=== PATIENT | female | born 1985 | race Caucasian/White ===

== ENCOUNTER 2016-11-17 15:03 | Emergency (ER) | payer MEDICAID ==
[2016-11-17 15:45] VITALS: RESP 18; TEMP 98.2; O2SAT 100; BMI 26.6
--- NOTE | 2016-11-17 16:05 | ED PDOC ---
Arrival/HPI - General Time Seen by Provider: 11/17/16 15:48 Historian: Patient - History of Present Illness Narrative History of Present Illness (Text): 11/17/16 16:00 This 31 yo female with pmh lupus, presents to this ED c/o "migraines for couple of days". Patient also noted multiple joint pain. Patient denies fever, neck stiffness, cp, sob, abdominal pain, n/v, skin rash, recent travel, sick contact , diplopia, dysarthria, urinary symptoms, vaginal discharge, seizures, or abnormal gait. Time/Duration: < week Context: Home Past Medical History - Provider Review Nursing Documentation Reviewed: Yes - Past History Past History: No Previous - Infectious Disease Hx of Infectious Diseases: None - Tetanus Immunization Tetanus Immunization: Unknown - Past Medical History Past Medical History: No Previous - Cardiac Hx Cardiac Disorders: No - Pulmonary Hx Respiratory Disorders: No - Neurological Hx Neurological Disorder: No - HEENT Hx HEENT Disorder: No - Renal Hx Renal Disorder: No - Endocrine/Metabolic Hx Systemic Lupus Erythematosus: Yes - Hematological/Oncological Hx Blood Disorders: No - Integumentary Hx Dermatological Disorder: No - Musculoskeletal/Rheumatological Hx Arthritis: Yes (RA) Hx Rheumatoid Arthritis: Yes Other/Comment: lupus - Gastrointestinal Hx Gastrointestinal Disorders: No - Genitourinary/Gynecological Hx Genitourinary Disorders: Yes Hx Bladder Cancer: No Other/Comment: ovarian cyst - Psychiatric Hx Psychophysiologic Disorder: No Hx Anxiety: No Hx Bipolar Disorder: No Hx Depression: No Hx Emotional Abuse: No Hx Hallucinations: No Hx Panic Disorder: No Hx Post Traumatic Stress Disorder: No Hx Psychosis: No Hx Physical Abuse: No Hx Schizophrenia: No Hx Sexual Abuse: No Hx Substance Use: No - Past Surgical History Past Surgical History: No Previous - Surgical History Hx Section: Yes - Anesthesia Hx Anesthesia: Yes Hx Anesthesia Reactions: No Hx Malignant Hyperthermia: No - Suicidal Assessment Feels Threatened In Home Enviroment: No Family/Social History - Physician Review Nursing Documentation Reviewed: Yes Family/Social History: No Known Family HX Smoking Status: Never Smoked Hx Alcohol Use: No Hx Substance Use: No Hx Substance Use Treatment: No Allergies/Home Meds Allergies/Adverse Reactions: Allergies Sulfa (Sulfonamide Antibiotics) Allergy (Verified 08/26/16 15:52) RASH Home Medications: Home Meds Medication Instructions Recorded Confirmed Hydroxychloroquine Sulfate 200 mg PO BID 12/17/15 08/26/16 [Plaquenil] metroNIDAZOLE [Flagyl] 500 mg PO BID 08/26/16 08/26/16 Review of Systems - Review of Systems Constitutional: Normal. absent: Fatigue, Weight Change, Fevers, Night Sweats Eyes: Normal. absent: Vision Changes, Photophobia, Eye Pain ENT: Normal. absent: Sore Throat, Rhinorrhea Respiratory: Normal. absent: SOB, Cough Cardiovascular: Normal. absent: Chest Pain, Palpitations, Syncope Gastrointestinal: Normal. absent: Abdominal Pain, Nausea, Vomiting Genitourinary Female: Normal. absent: Dysuria, Frequency, Hematuria, Vaginal Bleeding, Vaginal Discharge Musculoskeletal: Arthralgias, Myalgias. absent: Back Pain, Neck Pain, Joint Swelling Skin: Normal. absent: Rash, Pruritis Neurological: Headache. absent: Dizziness, Focal Weakness, Gait Changes, Speech Changes, Facial Droop, Disequilibrium, Seizure Endocrine: Normal Hemo/Lymphatic: Normal Psychiatric: Normal Physical Exam Vital Signs Temp Pulse Resp BP Pulse Ox 11/17/16 16:15 79 18 116/71 100 11/17/16 15:44 98.2 F 86 18 118/74 100 Temperature: Afebrile Blood Pressure: Normal Pulse: Regular Respiratory Rate: Normal Appearance: Positive for: Well-Appearing, Non-Toxic, Comfortable Pain Distress: None Mental Status: Positive for: Alert and Oriented X 3 - Systems Exam Head: Present: Atraumatic, Normocephalic Pupils: Present: PERRL Extroacular Muscles: Present: EOMI Conjunctiva: Present: Normal Mouth: Present: Moist Mucous Membranes Pharnyx: Present: Normal. No: ERYTHEMA, EXUDATE, TONSILS ENLARGED Nose (External): Present: Atraumatic Nose (Internal): Present: Normal Inspection Neck: Present: Normal Range of Motion, Trachea Midline. No: Meningeal Signs, MIDLINE TENDERNESS, Paraspinal Tenderness, Lymphadenopathy Respiratory/Chest: Present: Clear to Auscultation, Good Air Exchange. No: Respiratory Distress, Accessory Muscle Use, Wheezes, Retracting, Rhonchi Cardiovascular: Present: Regular Rate and Rhythm, Normal S1, S2. No: Murmurs Abdomen: Present: Normal Bowel Sounds. No: Tenderness, Distention, Peritoneal Signs, Rebound, Guarding Back: Present: Normal Inspection. No: CVA Tenderness Upper Extremity: Present: Normal Inspection, Normal ROM, NORMAL PULSES, Neurovascularly Intact, Capillary Refill < 2s. No: Cyanosis, Edema Lower Extremity: Present: Normal Inspection, NORMAL PULSES, Normal ROM, Neurovascularly Intact, Capillary Refill < 2 s. No: Edema, CALF TENDERNESS Neurological: Present: GCS=15, CN II-XII Intact, Speech Normal, Motor Func Grossly Intact, Normal Sensory Function, Normal Cerebellar Funct, Gait Normal Skin: Present: Warm, Dry, Normal Color. No: Rashes Psychiatric: Present: Alert, Oriented x 3 Medical Decision Making ED Course and Treatment: 11/17/16 18:07 Patient is resting comfortably, and is in no acute distress. Patient was instructed to follow up with PMD in 1-2 days for further evaluation. Patient came c/o migraines. Patient denies other symptoms. Physical exam was unremarkable. Normal gait. No neuro focal deficits. Patient requested to be referred to see Dr. Leong Neurologist. Patient was treated with Toradol IVP, IVF, Reglan IV, Benadryl IV. Patient stated she feels well and she wishes to be discharge home. Patient was recommended to f/u with pmd, and neurologist doctor in 1-2 days for revaluation. Patient was instructed to return to emergency if symptoms returns. Re-evaluation Time: 18:12 Reassessment Condition: Re-examined, Improved - Lab Interpretations Lab Results: Lab Results 11/17/16 16:10: Urine Color Yellow, Urine Appearance Clear, Urine pH 6.5, Ur Specific [place] >= 1.030, Urine Protein Trace H, Urine Glucose (UA) Negative, Urine Ketones Negative, Urine Blood Negative, Urine Nitrate Negative, Urine Bilirubin Negative, Urine Urobilinogen 0.2, Ur Leukocyte Esterase Negative, Urine RBC 0 - 2, Urine WBC 0 - 2, Ur Epithelial Cells 1 - 3, Urine Bacteria Small, Urine HCG, Qual Negative - Medication Orders Current Medication Orders: Discontinued Medications Diphenhydramine HCl (Benadryl) 25 mg IVP STAT STA Stop: 11/17/16 16:07 Last Admin: 11/17/16 17:15 Dose: 25 mg Sodium Chloride (Sodium Chloride 0.9%) 1,000 mls @ 999 mls/hr IV .Q1H1M STA Stop: 11/17/16 17:05 Last Admin: 11/17/16 17:15 Dose: 999 mls/hr Ketorolac Tromethamine (Toradol) 15 mg IVP STAT STA Stop: 11/17/16 16:06 Last Admin: 11/17/16 17:15 Dose: 15 mg Metoclopramide HCl (Reglan) 10 mg IVP STAT STA Stop: 11/17/16 16:06 Last Admin: 11/17/16 17:15 Dose: 10 mg Disposition/Present on Arrival - Present on Arrival Any Indicators Present on Arrival: No History of DVT/PE: No History of Uncontrolled Diabetes: No Urinary Catheter: No History Surgical Site Infection Following: None - Disposition Have Diagnosis and Disposition been Completed?: Yes Diagnosis: Headache Disposition: HOME/ ROUTINE Disposition Time: 18:13 Patient Plan: Discharge Condition: IMPROVED Discharge Instructions (ExitCare): General Headache (ED) Additional Instructions: Call Dr. Leong neurologist for revaluation in 2-3 days, or earliest appointment. Return to emergency if symptoms returns. Call private doctor for revaluation. Take medication as instructed. Prescriptions: Acetaminophen/Butalbital/Caf [Fioricet] 1 tab PO Q6H PRN #12 tab PRN Reason: Headache Referrals: Nida Jarvis MD [Primary Care Provider] - Follow up with primary Jalen Leong MD [Staff Provider] - Follow up with primary Forms: WORK NOTE
[2016-11-17 16:47] LABS: PH,URINE 6.5 (4.7-8.0); URINE BILIRUBIN NEGATIVE (NEGATIVE); URINE BLOOD NEGATIVE (NEGATIVE); URINE GLUCOSE (UA) NEGATIVE (NEGATIVE); URINE KETONE NEGATIVE (NEGATIVE); URINE LEUKOCYTE ESTERASE NEGATIVE Leu/uL (NEGATIVE); URINE PROTEIN TRACE mg/dL (<30 mg/dL); URINE UROBILINOGEN 0.2 E.U./dL (<1 E.U./dL)
[2016-11-17 17:00] LABS: URINE APPEARANCE CLEAR (CLEAR); URINE COLOR YELLOW (YELLOW)
[2016-11-17 17:13] LABS: URINE BACTERIA SMALL (NEG); URINE RBC 0 - 2 /hpf (0-2); URINE WBC 0 - 2 /hpf (0-6)
[2016-11-17] MEDS: Sodium Chloride 0.9% 1,000 ML IV STA (17:15)
[2016-11-17] MEDS: DiphenhydrAMINE 50 mg/ml Inj IVP STA (17:15)
[2016-11-17 18:29] VITALS: BP 114/68; PULSE 75
== END 2016-11-17 18:30 | disposition home or self-care (01) ==
LOC: ED 15:03
DX: R51 Headache (principal); M06.9 Rheumatoid arthritis, unspecified
CPT/HCPCS: 81001; 84703; 96374; 96375; 99285; J1200; J1885; J2765; J7040

== ENCOUNTER 2017-07-16 12:30 | Emergency (ER) | payer MEDICAID ==
[2017-07-16 12:32] VITALS: BMI 25.4
[2017-07-16 12:33] VITALS: TEMP 98.1; O2SAT 100
[2017-07-16] MEDS ORDERED: Sodium Chloride 0.9% 500 ML IV STA (12:59)
--- NOTE | 2017-07-16 13:06 | ED PDOC ---
Arrival/HPI - General Chief Complaint: GI Problem Time Seen by Provider: 07/16/17 12:40 Historian: Patient - History of Present Illness Narrative History of Present Illness (Text): 07/16/17 14:17 pt p/w + ~ 1 week onset of lower abd cramps/pain, at most pain is 7-8/10, waxing and waning; pt states pain worsened over the last few days; pt states + decr/poor appetite, + nausea worsening today, no vomiting, + easily fatigued/ tiredness/persistent weakness; pt states no fever, ? chills, no sweats, no cp/ sob/palpitations, no numbness/tingling, no urinary/bowel changes, last BM was yesterday, no rashes, no fall/trauma/sick contact, no travel; pt denied other complaints; pt is here for further eval pt states her usual Lupus flare can involve her abd, but usually involves her joints/legs/arms pt denied current vaginal discharge (blood/green/yellow); pt denied vaginal bleeding pt denied weight loss Time/Duration: < week Symptom Onset: Gradual Symptom Course: Worsening Severity Level: 7 Past Medical History - Provider Review Nursing Documentation Reviewed: Yes - Travel History Have you recently traveled outside [place] w/in the past 3 mons?: No - Past History Past History: No Previous - Infectious Disease Hx of Infectious Diseases: None - Tetanus Immunization Tetanus Immunization: Unknown - Past Medical History Past Medical History: No Previous - Cardiac Hx Cardiac Disorders: No - Pulmonary Hx Respiratory Disorders: No - Neurological Hx Neurological Disorder: No - HEENT Hx HEENT Disorder: No - Renal Hx Renal Disorder: No - Endocrine/Metabolic Hx Systemic Lupus Erythematosus: Yes - Hematological/Oncological Hx Blood Disorders: No - Integumentary Hx Dermatological Disorder: No - Musculoskeletal/Rheumatological Hx Arthritis: Yes (RA) Hx Rheumatoid Arthritis: Yes Other/Comment: lupus - Gastrointestinal Hx Gastrointestinal Disorders: No - Genitourinary/Gynecological Hx Genitourinary Disorders: Yes Hx Bladder Cancer: No Other/Comment: ovarian cyst. endometriosis - Psychiatric Hx Psychophysiologic Disorder: No Hx Anxiety: No Hx Bipolar Disorder: No Hx Depression: No Hx Emotional Abuse: No Hx Hallucinations: No Hx Panic Disorder: No Hx Post Traumatic Stress Disorder: No Hx Psychosis: No Hx Physical Abuse: No Hx Schizophrenia: No Hx Sexual Abuse: No Hx Substance Use: No - Past Surgical History Past Surgical History: No Previous - Surgical History Hx Section: Yes (x 1) - Anesthesia Hx Anesthesia: Yes Hx Anesthesia Reactions: No Hx Malignant Hyperthermia: No - Suicidal Assessment Feels Threatened In Home Enviroment: No Family/Social History - Physician Review Nursing Documentation Reviewed: Yes Family/Social History: No Known Family HX Smoking Status: Never Smoked Hx Alcohol Use: No Hx Substance Use: No Hx Substance Use Treatment: No Allergies/Home Meds Allergies/Adverse Reactions: Allergies Sulfa (Sulfonamide Antibiotics) Allergy (Verified 08/26/16 15:52) RASH Home Medications: Home Meds Medication Instructions Recorded Confirmed Hydroxychloroquine Sulfate 200 mg PO BID 12/17/15 07/16/17 [Plaquenil] Acetaminophen [Tylenol 325mg tab] 1 tab PO TID 07/16/17 07/16/17 Nabumetone [Relafen] 1 tab PO TID 07/16/17 07/16/17 Review of Systems - Review of Systems Constitutional: Normal, Fatigue. absent: Fevers, Night Sweats Eyes: Normal ENT: Normal Respiratory: Normal Cardiovascular: Normal Gastrointestinal: Abdominal Pain, Nausea, Appetite Changes. absent: Vomiting Genitourinary Female: absent: Dysuria, Frequency, Hematuria, Vaginal Bleeding, Vaginal Discharge Musculoskeletal: Arthralgias, Myalgias Skin: Normal Neurological: Normal Endocrine: Normal Hemo/Lymphatic: Normal Psychiatric: Normal Physical Exam Vital Signs Reviewed: Yes Vital Signs Temp Pulse Resp BP Pulse Ox 07/16/17 12:31 98.1 F 70 18 118/74 100 Temperature: Afebrile Blood Pressure: Normal Pulse: Regular Respiratory Rate: Normal Appearance: Positive for: Well-Appearing, Non-Toxic, Comfortable Pain Distress: None Mental Status: Positive for: Alert and Oriented X 3 - Systems Exam Head: Present: Atraumatic, Normocephalic Pupils: Present: PERRL, Other (visual field intact b/l, no nystagmus, no photophobia, sclera anicteric) Extroacular Muscles: Present: EOMI Conjunctiva: Present: Normal Mouth: Present: Moist Mucous Membranes, Other (intact dentitions, no lesions/ lacerations noted to oralpharynx) Pharnyx: Present: Normal, Other (uvula/tonuge are midline, no exudate/lesions, no drooling/stridor) Neck: Present: Normal Range of Motion Respiratory/Chest: Present: Clear to Auscultation, Good Air Exchange. No: Respiratory Distress, Accessory Muscle Use Cardiovascular: Present: Regular Rate and Rhythm, Normal S1, S2. No: Murmurs Abdomen: Present: Normal Bowel Sounds, Other (well nourished female, lower suprapubic region mild tenderness, no perez's sign, no mcburney's point tenderness, no masses/rebound/guarding/rigidity). No: Tenderness, Distention, Peritoneal Signs Back: Present: Normal Inspection, Other (no midline tenderness, no step off). No: CVA Tenderness Upper Extremity: Present: Normal Inspection, Normal ROM, NORMAL PULSES, Capillary Refill < 2s. No: Cyanosis, Edema Lower Extremity: Present: Normal Inspection, NORMAL PULSES, Normal ROM, Capillary Refill < 2 s. No: Edema, Raciel's Sign Neurological: Present: GCS=15, CN II-XII Intact, Speech Normal Skin: Present: Warm, Dry, Normal Color, Other (cap refill < 1 sec, no ulcerations, no petechiae). No: Rashes Psychiatric: Present: Alert, Oriented x 3, Normal Insight, Normal Concentration Medical Decision Making ED Course and Treatment: 07/16/17 14:02 Impression: 1 week onset of lower abd pain/cramps; + decr appetite, + fatigue/ weakness; hx of lupus A/P: unlikely surg process (i.e appy/diverticulitis); possible lupus flare/ exacerbation; lower abd pain, non-specific; ? endometrosis. r/o UTI/infection - labs - ua - us - observe - supportive care 07/16/17 14:53 pt is feeling improved pt states her general pain is easing down to 4/10 pt is not as nauseous pt will attempt po challenge 07/16/17 15:03 pt tolerated po well pt is feeling improved pt is made aware of her medical results bland diet and continued hydration is encouraged pt will f/u as directed pt will be discharged home Re-evaluation Time: 14:45 Reassessment Condition: Improved - Lab Interpretations Lab Results: 07/16/17 13:00 07/16/17 13:00 Lab Results 07/16/17 13:00: Sodium 139, Potassium 4.0, Chloride 105, Carbon Dioxide 24, Anion Gap 14, BUN 12, Creatinine 0.7, Est GFR ( Amer) > 60, Est GFR (Non- Af Amer) > 60, Random Glucose 85, Calcium 8.8, Total Bilirubin 0.7, AST 34, ALT 29, Alkaline Phosphatase 83, Total Protein 8.0, Albumin 4.4, Globulin 3.6, Albumin/Globulin Ratio 1.2, Lipase 129 07/16/17 13:00: Urine Color Yellow, Urine Appearance Sl cloudy, Urine pH 6.0, Ur Specific [place] >= 1.030, Urine Protein Trace H, Urine Glucose (UA) Negative , Urine Ketones Negative, Urine Blood Negative, Urine Nitrate Negative, Urine Bilirubin Negative, Urine Urobilinogen 0.2, Ur Leukocyte Esterase Negative, Urine RBC 0 - 2, Urine WBC 0 - 2, Ur Epithelial Cells 1 - 3, Urine Bacteria Small, Urine Other Uyeast, Urine HCG, Qual Negative 07/16/17 13:00: WBC 8.6, RBC 4.34, Hgb 13.4, Hct 39.8, MCV 91.7, MCH 30.9, MCHC 33.7, RDW 13.2, Plt Count 236, MPV 10.3, Gran % 79.9 H, Lymph % (Auto) 11.4 L, Swain % (Auto) 5.8, Eos % (Auto) 2.7, Baso % (Auto) 0.2, Gran # 6.87 H, Lymph # 1.0 L, Swain # 0.5, Eos # 0.2, Baso # 0.02, ESR 13 I have reviewed the lab results: Yes (WNL) Interpretation: All labs normal - RAD Interpretation Radiology Orders: 07/16/17 12:59 ABDOMEN COMPLETE [US] Stat FINDINGS: LIVER: Measures 13.7 cm. Patent portal vein. Portal venous flow: Hepatopetal. Unremarkeable echogenicity of the liver parenchyma. No mass. No intrahepatic bile duct dilatation. GALLBLADDER: Unremarkable. No gallstones. COMMON BILE DUCT: Measures 3.6 mm. No stones. No dilatation. PANCREAS: Unremarkable as visualized. No mass. No ductal dilatation. RIGHT KIDNEY: Measures 4.4 x 11.3cm. Normal echogenicity. No calculus, mass, or hydronephrosis. LEFT KIDNEY: Measures 5.6 x 10.5cm. Normal echogenicity. No calculus, mass, or hydronephrosis. SPLEEN: Normal in size and contour. No mass. AORTA: No aneurysmal dilatation. IVC: Unremarkable. OTHER FINDINGS: None. IMPRESSION: Unremarkable abdominal sonogram. Special Equipment Technician: Radiologist - Medication Orders Current Medication Orders: Discontinued Medications Sodium Chloride (Sodium Chloride 0.9%) 500 mls @ 1,000 mls/hr IV .Q30M STA Stop: 07/16/17 13:28 Last Admin: 07/16/17 13:21 Dose: 1,000 mls/hr eMAR Start Stop Document 07/16/17 13:21 SF (Rec: 07/16/17 13:21 [id number]) Intravenous Solution Start Date 07/16/17 Start Time 13:21 End Date 07/16/17 End time 13:51 Total Infusion Time 30 Ketorolac Tromethamine (Toradol) 15 mg IVP STAT STA Stop: 07/16/17 13:01 Last Admin: 07/16/17 13:21 Dose: 15 mg MAR Pain Assessment Document 07/16/17 13:21 SF (Rec: 07/16/17 13:21 [id number]) Pain Reassessment Is this a pain reassessment? Yes Sleep Is patient sleeping during reassessment? No Presence of Pain Presence of Pain Yes Pain Scale Used Pain Scale Used Numeric IVP Administration Document 07/16/17 13:21 SF (Rec: 07/16/17 13:21 [facility] [id number]) Charges for Administration # of IVP Administrations 1 Ondansetron HCl (Zofran Inj) 4 mg IVP STAT STA Stop: 07/16/17 13:00 Last Admin: 07/16/17 13:20 Dose: 4 mg IVP Administration Document 07/16/17 13:20 SF (Rec: 07/16/17 13:20 [id number]) Charges for Administration # of IVP Administrations 1 Disposition/Present on Arrival - Present on Arrival Any Indicators Present on Arrival: No History of DVT/PE: No History of Uncontrolled Diabetes: No Urinary Catheter: No History of Decub. Ulcer: No History Surgical Site Infection Following: None - Disposition Have Diagnosis and Disposition been Completed?: Yes Diagnosis: Abdominal cramps, Nausea, General medical exam Disposition: HOME/ ROUTINE Disposition Time: 14:55 Patient Plan: Discharge Condition: STABLE Discharge Instructions (ExitCare): Acute Abdominal Pain (GEN), Acute Nausea and Vomiting (ED) Print Language: DANISH Additional Instructions: Make sure to see your doctor in 1-2 days DRINK PLENTY OF FLUIDS BLAND DIET is encouraged x 1-2 days take your medications as prescribed RETURN TO ED IF worse pain, cant breath, persistent vomiting, high fever >101- 102 for hours, altered behavior, unable to urinate, heavy/persistent bleeding, passing out, chest pain, or other medical emergencies Prescriptions: Ondansetron ODT [Zofran ODT] 4 mg PO Q6H #10 odt oxyCODONE/Acetaminophen [Percocet 5/325 mg Tab] 1 tab PO Q6H #10 tab Referrals: PCP,KHOA [Primary Care Provider] - Follow up with primary Deion Rao MD [Staff Provider] - Follow up with primary Forms: [email or web address] ([place]ian)
[2017-07-16 13:11] LABS: BASO # 0.02 K/mm3 (0.0-2.0); BASO % 0.2 % (0.0-3.0); EOS # 0.2 (0.0-0.7); EOS % 2.7 % (1.5-5.0); GRAN # 6.87 (1.4-6.5); GRAN % 79.9 % (50.0-68.0); HEMATOCRIT 39.8 % (36.0-48.0); LYMPH % 11.4 % (22.0-35.0); MEAN CELL VOLUME 91.7 fl (80.0-105.0); MEAN CORPUSCULAR HEMOGLOBIN 30.9 pg (25.0-35.0); MEAN CORPUSCULAR HGB CONC 33.7 g/dl (31.0-37.0); MEAN PLATELET VOLUME 10.3 fl (7.0-11.0); MONO # 0.5 (0.1-0.6); MONO % 5.8 % (1.0-6.0); RED CELL DISTRIBUTION WIDTH 13.2 % (11.5-14.5); WHITE BLOOD COUNT 8.6 10^3/ul (4.5-11.0)
[2017-07-16 13:12] LABS: URINE BILIRUBIN NEGATIVE (NEGATIVE); URINE BLOOD NEGATIVE (NEGATIVE); URINE GLUCOSE (UA) NEGATIVE (NEGATIVE); URINE KETONE NEGATIVE (NEGATIVE); URINE LEUKOCYTE ESTERASE NEGATIVE Leu/uL (NEGATIVE); URINE PROTEIN TRACE mg/dL (<30 mg/dL); URINE UROBILINOGEN 0.2 E.U./dL (<1 E.U./dL)
[2017-07-16 13:13] LABS: URINE APPEARANCE SL CLOUDY (CLEAR); URINE COLOR YELLOW (YELLOW)
[2017-07-16 13:20] LABS: BILIRUBIN,TOTAL 0.7 mg/dL (0.2-1.3); CALCIUM 8.8 mg/dL (8.4-10.5); GFR AFRICAN-AMERICAN > 60; GLUCOSE,RANDOM 85 mg/dL (70-110); LIPASE 129 U/L (23-300)
[2017-07-16 13:23] LABS: ALB/GLOB RATIO 1.2 (1.1-1.8); ALKALINE PHOSPHATASE 83 U/L (38-126); ALT/SGPT 29 U/L (7-56); AST/SGOT 34 U/L (14-36); BLOOD UREA NITROGEN 12 mg/dL (7-21); CARBON DIOXIDE 24 mmol/L (21-33); CHLORIDE 105 mmol/L (98-107); SODIUM 139 mmol/L (132-148)
[2017-07-16 13:25] LABS: URINE BACTERIA SMALL (NEG); URINE RBC 0 - 2 /hpf (0-2); URINE WBC 0 - 2 /hpf (0-6)
--- NOTE | 2017-07-16 14:53 | US ---
HISTORY: Diffuse lower abdominal pain. Relevant medical history: Endometriosis. COMPARISON: 11/30/2015 CT abdomen and pelvis TECHNIQUE: Sonographic evaluation of the abdomen. FINDINGS: LIVER: Measures 13.7 cm. Patent portal vein. Portal venous flow: Hepatopetal. Unremarkeable echogenicity of the liver parenchyma. No mass. No intrahepatic bile duct dilatation. GALLBLADDER: Unremarkable. No gallstones. COMMON BILE DUCT: Measures 3.6 mm. No stones. No dilatation. PANCREAS: Unremarkable as visualized. No mass. No ductal dilatation. RIGHT KIDNEY: Measures 4.4 x 11.3cm. Normal echogenicity. No calculus, mass, or hydronephrosis. LEFT KIDNEY: Measures 5.6 x 10.5cm. Normal echogenicity. No calculus, mass, or hydronephrosis. SPLEEN: Normal in size and contour. No mass. AORTA: No aneurysmal dilatation. IVC: Unremarkable. OTHER FINDINGS: None. IMPRESSION: Unremarkable abdominal sonogram.
[2017-07-16 14:59] VITALS: BP 121/78; PULSE 67; RESP 17
== END 2017-07-16 15:10 | disposition home or self-care (01) ==
LOC: ED 12:30
DX: Z00.00 Encounter for general adult medical examination without abnormal findings (principal); R11.0 Nausea; R10.30 Lower abdominal pain, unspecified; M32.9 Systemic lupus erythematosus, unspecified; M06.9 Rheumatoid arthritis, unspecified
CPT/HCPCS: 76700; 80053; 81001; 83690; 84703; 85025; 85651; 96374; 96375; 99285; J1885; J2405; J7040

== ENCOUNTER 2018-02-21 10:12 | Emergency (ER) | payer MEDICAID ==
[2018-02-21 10:12] VITALS: BMI 25.4
[2018-02-21 10:26] VITALS: RESP 18; TEMP 99
--- NOTE | 2018-02-21 10:39 | ED PDOC ---
Arrival/HPI - General Chief Complaint: Female Genitourinary Time Seen by Provider: 02/21/18 10:23 Historian: Patient - History of Present Illness Narrative History of Present Illness (Text): 02/21/18 10:34 This 32 yo female with pmh endometriosis, Lupus, presents to this ED c/o lower back pain, and suprapubic pain x 2 weeks. Patient admits recently getting "Depo " shot. Patient denies fever, sob, cp, abdominal pain, hematuria, STD exposure , weakness, paresthesias, GI/ incontinence, saddle anesthesia, or abnormal gait. Time/Duration: Other (2 weeks) Quality: Aching Context: Home Past Medical History - Provider Review Nursing Documentation Reviewed: Yes - Past History Past History: No Previous - Infectious Disease Hx of Infectious Diseases: None - Tetanus Immunization Tetanus Immunization: Unknown - Past Medical History Past Medical History: No Previous - Cardiac Hx Cardiac Disorders: No - Pulmonary Hx Respiratory Disorders: No - Neurological Hx Neurological Disorder: No - HEENT Hx HEENT Disorder: No - Renal Hx Renal Disorder: No - Endocrine/Metabolic Hx Systemic Lupus Erythematosus: Yes - Hematological/Oncological Hx Blood Disorders: No - Integumentary Hx Dermatological Disorder: No - Musculoskeletal/Rheumatological Hx Arthritis: Yes (RA) Hx Rheumatoid Arthritis: Yes Other/Comment: lupus - Gastrointestinal Hx Gastrointestinal Disorders: No - Genitourinary/Gynecological Hx Genitourinary Disorders: Yes Hx Bladder Cancer: No Other/Comment: ovarian cyst. endometriosis - Psychiatric Hx Psychophysiologic Disorder: No Hx Substance Use: No - Past Surgical History Past Surgical History: No Previous - Surgical History Hx Section: Yes (x 1) - Anesthesia Hx Anesthesia: Yes Hx Anesthesia Reactions: No Hx Malignant Hyperthermia: No - Suicidal Assessment Feels Threatened In Home Enviroment: No Family/Social History - Physician Review Nursing Documentation Reviewed: Yes Family/Social History: Other (noncontributory) Smoking Status: Never Smoked Hx Alcohol Use: No Hx Substance Use: No Hx Substance Use Treatment: No Allergies/Home Meds Allergies/Adverse Reactions: Allergies Sulfa (Sulfonamide Antibiotics) Allergy (Verified 02/21/18 10:25) RASH Review of Systems - Review of Systems Constitutional: Normal. absent: Fatigue, Weight Change, Fevers, Night Sweats Eyes: Normal ENT: Normal Respiratory: Normal Cardiovascular: Normal Gastrointestinal: Normal Genitourinary Female: Other (see hpi) Musculoskeletal: Normal Skin: Normal Neurological: Normal Endocrine: Normal Hemo/Lymphatic: Normal Psychiatric: Normal Physical Exam Vital Signs Temp Pulse Resp BP Pulse Ox 02/21/18 10:21 99 F 64 18 116/71 99 Temperature: Afebrile Blood Pressure: Normal Pulse: Regular Respiratory Rate: Normal Appearance: Positive for: Well-Appearing, Non-Toxic, Comfortable Pain Distress: None Mental Status: Positive for: Alert and Oriented X 3 - Systems Exam Head: Present: Atraumatic, Normocephalic Pupils: Present: PERRL Extroacular Muscles: Present: EOMI Conjunctiva: Present: Normal Mouth: Present: Moist Mucous Membranes Neck: Present: Normal Range of Motion Respiratory/Chest: Present: Clear to Auscultation, Good Air Exchange. No: Respiratory Distress, Accessory Muscle Use Cardiovascular: Present: Regular Rate and Rhythm, Normal S1, S2. 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 No: Vaginal Bleeding , Vaginal Lesions, Adenexal Tenderness, Adenexal Mass, Odor Back: Present: Normal Inspection. No: CVA Tenderness, Midline Tenderness, Paraspinal Tenderness, Pain with Leg Raise Upper Extremity: Present: Normal Inspection. No: Cyanosis, Edema Lower Extremity: Present: Normal Inspection. No: Edema Neurological: Present: GCS=15, CN II-XII Intact, Speech Normal Skin: Present: Warm, Dry, Normal Color. No: Rashes Psychiatric: Present: Alert, Oriented x 3, Normal Insight, Normal Concentration Medical Decision Making ED Course and Treatment: 02/21/18 11:33 Re-evaluation. Patient feels better. Discussed results and plan with patient who expresses understanding. All questions answered and there is agreement with the plan to discharge home with instructions. Patient stable for discharge. Return if symptoms persist or worsen. Re-evaluation Time: 11:24 Reassessment Condition: Re-examined, Improved - Lab Interpretations Lab Results: Lab Results 02/21/18 10:44: Urine Color Yellow, Urine Appearance Clear, Urine pH 7.5, Ur Specific [place] >= 1.030, Urine Protein Trace H, Urine Glucose (UA) Negative, Urine Ketones Negative, Urine Blood Negative, Urine Nitrate Negative, Urine Bilirubin Negative, Urine Urobilinogen 0.2, Ur Leukocyte Esterase Trace H, Urine RBC Negative, Urine WBC 2 - 5, Ur Epithelial Cells 3 - 4, Urine Bacteria Few, Urine HCG, Qual Negative I have reviewed the lab results: Yes Interpretation: Abnormal lab values (pyuria) - Medication Orders Current Medication Orders: Discontinued Medications Azithromycin (Zithromax) 1,000 mg PO STAT STA PRN Reason: Protocol Stop: 02/21/18 11:22 Ceftriaxone Sodium (Rocephin) 250 mg IM STAT STA PRN Reason: Protocol Stop: 02/21/18 11:21 Ibuprofen (Motrin Tab) 400 mg PO STAT STA Stop: 02/21/18 11:23 Ketorolac Tromethamine (Toradol) 30 mg IM STAT STA Stop: 02/21/18 11:14 Disposition/Present on Arrival - Present on Arrival Any Indicators Present on Arrival: No History of DVT/PE: No History of Uncontrolled Diabetes: No Urinary Catheter: No History of Decub. Ulcer: No History Surgical Site Infection Following: None - Disposition Have Diagnosis and Disposition been Completed?: Yes Diagnosis: Acute cystitis, Vaginal discharge Disposition: HOME/ ROUTINE Disposition Time: 11:35 Patient Plan: Discharge Condition: GOOD Discharge Instructions (ExitCare): Vaginal Discharge in Adults, Acute Cystitis (DC) Additional Instructions: Call private doctor for follow up visit in 1-2 days. Take medication as instructed. Return to emergency if symptoms worsen. Do not drink alcohol if you are taking antibotics. Return to emergency if pain worsen. Review urine culture result with your doctor in 2-3 days. Prescriptions: Fluconazole [Diflucan] 150 mg PO DAILY #1 tab Metronidazole [Flagyl] 2,000 mg PO DAILY #4 tablet Nitrofurantoin Macrocrystals [Macrobid] 100 mg PO BID #14 cap Referrals: Nida Jarvis MD [Primary Care Provider] - Follow up with primary Forms: [employer] (Maori)
[2018-02-21 10:58] LABS: PH,URINE 7.5 (4.7-8.0); URINE BILIRUBIN NEGATIVE (NEGATIVE); URINE BLOOD NEGATIVE (NEGATIVE); URINE GLUCOSE (UA) NEGATIVE (NEGATIVE); URINE LEUKOCYTE ESTERASE TRACE Leu/uL (NEGATIVE); URINE PROTEIN TRACE mg/dL (<30 mg/dL); URINE UROBILINOGEN 0.2 E.U./dL (<1 E.U./dL)
[2018-02-21 10:59] LABS: URINE APPEARANCE CLEAR (CLEAR); URINE COLOR YELLOW (YELLOW)
[2018-02-21 11:04] LABS: HCG,QUALITATIVE URINE NEGATIVE (NEGATIVE); URINE BACTERIA FEW (NEG); URINE RBC NEGATIVE /hpf (0-2)
[2018-02-21] MEDS: cefTRIAXone (Rocephin) 250 mg Inj IM STA (12:15)
[2018-02-21 12:43] VITALS: BP 120/65; PULSE 63; O2SAT 99
== END 2018-02-21 11:30 | disposition home or self-care (01) ==
LOC: ED 10:12
DX: N30.00 Acute cystitis without hematuria (principal); N89.8 Other specified noninflammatory disorders of vagina
CPT/HCPCS: 81001; 81025; 84703; 87086; 87491; 87591; 96372; 99284; J0696; J1885

== ENCOUNTER 2018-06-10 12:51 | Emergency (ER) | payer MEDICAID ==
[2018-06-10 12:52] VITALS: BMI 25.4
[2018-06-10 13:09] VITALS: RESP 18; TEMP 98.6
--- NOTE | 2018-06-10 13:52 | ED PDOC ---
Arrival/HPI - General Chief Complaint: Cough, Cold, Congestion Time Seen by Provider: 06/10/18 13:18 Historian: Patient - History of Present Illness Narrative History of Present Illness (Text): 06/10/18 13:25 A 32 year old female, whose past medical history includes pneumonia lupus erythematosus, and rhematoid arthritis, presents to the emergency department complaining of dry cough. Patient reports also experiencing transient sore throat and left sided neck gland swelling which has resolved. States she had a sore throat not long ago and went to see a doctor. Negative for strep throat. 4 days after visiting doctor, patient found to have left-side neck swelling, which has gone down. Patient has since developed coughing. She became concerned due to having pneumonia in the past, and decided to be evaluated here in the ER. Patient denies any fever, or any other complaints at this time. No PMD 06/10/18 14:41 Past Medical History - Provider Review Nursing Documentation Reviewed: Yes - Past History Past History: No Previous - Infectious Disease Hx of Infectious Diseases: None - Tetanus Immunization Tetanus Immunization: Unknown - Reproductive Menopause: No - Past Medical History Past Medical History: No Previous - Cardiac Hx Cardiac Disorders: No - Pulmonary Hx Respiratory Disorders: No - Neurological Hx Neurological Disorder: No - HEENT Hx HEENT Disorder: No - Renal Hx Renal Disorder: No - Endocrine/Metabolic Hx Systemic Lupus Erythematosus: Yes - Hematological/Oncological Hx Blood Disorders: No - Integumentary Hx Dermatological Disorder: No - Musculoskeletal/Rheumatological Hx Arthritis: Yes (RA) Hx Rheumatoid Arthritis: Yes Other/Comment: lupus - Gastrointestinal Hx Gastrointestinal Disorders: No - Genitourinary/Gynecological Hx Genitourinary Disorders: Yes Hx Bladder Cancer: No Other/Comment: ovarian cyst. endometriosis - Psychiatric Hx Psychophysiologic Disorder: No Hx Substance Use: No - Past Surgical History Past Surgical History: No Previous - Surgical History Hx Section: Yes (x 1) - Anesthesia Hx Anesthesia: Yes Hx Anesthesia Reactions: No Hx Malignant Hyperthermia: No - Suicidal Assessment Feels Threatened In Home Enviroment: No Family/Social History - Physician Review Nursing Documentation Reviewed: Yes Family/Social History: No Known Family HX Smoking Status: Never Smoked Hx Alcohol Use: No Hx Substance Use: No Hx Substance Use Treatment: No Allergies/Home Meds Allergies/Adverse Reactions: Allergies Sulfa (Sulfonamide Antibiotics) Allergy (Verified 02/21/18 10:25) RASH Review of Systems - Physician Review All systems were reviewed & negative as marked: Yes - Review of Systems Constitutional: absent: Fevers ENT: Sinus Congestion (only when laying down). absent: Sore Throat Respiratory: Cough (feels mucous in throat) Physical Exam - Physical Exam Narrative Physical Exam (Text): Gen: VS reviewed, alert, well developed, well nourished, nontoxic, mild distress Eye: EOMI, PERRL Neck: no JVD, supple, no adenopathy CV: regular rate, regular rhythm, no rubs,no murmur, S1, S2 Pulm: no distress, clear to auscultation, no wheeze, no rhonchi, breath sounds equal, no rales Abd: soft, nontender, no guarding, no rebound, no rigidity Ext: no edema Skin: good color, no rash, no cyanosis Psych: responds appropriately to questions, normal affect Neuro: oriented x3, CN2-12 intact grossly, motor intact, sensation intact Vital Signs Reviewed: Yes Vital Signs Temp Pulse Resp BP Pulse Ox 06/10/18 13:05 98.6 F 67 18 120/74 98 Temperature: Afebrile Blood Pressure: Normal Pulse: Regular Respiratory Rate: Normal Appearance: Positive for: Well-Appearing, Non-Toxic, Comfortable Pain Distress: None Mental Status: Positive for: Alert and Oriented X 3 Medical Decision Making ED Course and Treatment: 06/10/18 13:27 Impression: 32 year old female with cough. No acute findings on physical exam. Plan: -- Chest X- Ray -- POC Urine Test -- Reassess and disposition Progress Notes: 06/10/18 14:40 06/10/18 14:43 patient seen for uri symptoms, dry cough exacerbated when lying flat. no pleurisy, no chest pain, no fever. presentation consistent with postnasal drip. supportive care, sudafed for postnasal drip. follow up with pcp. - RAD Interpretation Radiology Orders: 06/10/18 13:26 CXR [CHEST TWO VIEWS (PA/LAT)] [RAD] Stat - Scribe Statement The provider has reviewed the documentation as recorded by the Shavonne Clarso Provider Scribe Attestation: All medical record entries made by the Shavonne were at my direction and personally dictated by me. I have reviewed the chart and agree that the record accurately reflects my personal performance of the history, physical exam, medical decision making, and the department course for this patient. I have also personally directed, reviewed, and agree with the discharge instructions and disposition. Disposition/Present on Arrival - Present on Arrival Any Indicators Present on Arrival: No History of DVT/PE: No History of Uncontrolled Diabetes: No Urinary Catheter: No History of Decub. Ulcer: No History Surgical Site Infection Following: None - Disposition Have Diagnosis and Disposition been Completed?: Yes Diagnosis: URI with cough and congestion, Postnasal drip Disposition: HOME/ ROUTINE Disposition Time: 14:45 Patient Plan: Discharge Condition: STABLE Discharge Instructions (ExitCare): Viral Upper Respiratory Infection, Adult (DC) Additional Instructions: Return for any new or worsening symptoms. YUMIKO SANCHEZ, thank you for letting us take care of you today. Your provider was Dr. Giovanny Gibson and you were treated for cough with postnasal drip. The emergency medical care you received today was directed at your acute symptoms. If you were prescribed any medication, please fill it and take as directed. It may take several days for your symptoms to resolve. Return to the Emergency Department if your symptoms worsen, do not improve, or if you have any other problems. Please contact your doctor or call one of the physicians/clinics you have been referred to that are listed on the Patient Visit Information form that is included in your discharge packet. Bring any paperwork you were given at discharge with you along with any medications you are taking to your follow up visit. Our treatment cannot replace ongoing medical care by a primary care provider outside of the emergency department. Thank you for allowing the [facility] team to be part of your care today. If you had an X-Ray or CT scan: A Radiologist will review the ED reading if any change in treatment is needed we will contact you. If you had a blood, urine, or wound culture: It will take several days for the results, if any change in treatment is needed we will contact you. If you had an STI test: It will take 48 hours for the results. Please call after 1 week if you have not heard back. Prescriptions: Pseudoephedrine HCl [Sudafed] 30 mg PO QID 5 Days #20 tablet Forms: [employer] ([place]an), WORK NOTE
--- NOTE | 2018-06-10 14:25 | RAD ---
HISTORY: cough, pneumonia COMPARISON: Chest x-ray performed 02/25/16 TECHNIQUE: Chest PA and lateral FINDINGS: LUNGS: Biapical pleural thickening. No focal consolidation. Please note that chest x-ray has limited sensitivity for the detection of pulmonary masses. PLEURA: No significant pleural effusion identified. No definite pneumothorax . CARDIOVASCULAR: Heart size appears within normal limits. No atherosclerotic calcification present. OSSEOUS STRUCTURES: No acute osseous abnormality identified. VISUALIZED UPPER ABDOMEN: Unremarkable. OTHER FINDINGS: None. IMPRESSION: Biapical pleural thickening. No focal consolidation, significant pleural effusion, or definite pneumothorax identified.
[2018-06-10 15:02] VITALS: BP 131/74; PULSE 70; O2SAT 99
== END 2018-06-10 15:01 | disposition home or self-care (01) ==
LOC: ED 12:51
DX: J06.9 Acute upper respiratory infection, unspecified (principal); R05 Cough; R09.82 Postnasal drip; R09.81 Nasal congestion; M32.9 Systemic lupus erythematosus, unspecified; M06.9 Rheumatoid arthritis, unspecified